=== PATIENT | female | born 1995 | race Hispanic/Latino ===

== ENCOUNTER 2018-11-21 02:41 | Outpatient (CLI) | payer MEDICAID, OTHER ==
[2018-11-21] MEDS ORDERED: LACTATED RINGERS 1,000 ML ONE (03:10)
[2018-11-21] MEDS ORDERED: ZOFRAN ONE (03:30)
[2018-11-21] MEDS ORDERED: ZOFRAN IV ONE (03:42)
[2018-11-21] MEDS ORDERED: LACTATED RINGERS 1,000 ML IV SCH (04:00)
[2018-11-21] MEDS ORDERED: VISTARIL PO ONE ×2 (04:21→04:30)
== END 2018-11-21 05:06 | disposition home or self-care (01) ==
LOC: TRG 02:41
PROVIDERS: ATTEND Obstetrics & Gynecology
DX: O62.9 Abnormality of forces of labor, unspecified (principal); Z3A.37 37 weeks gestation of pregnancy
CPT/HCPCS: 59025; 96361; 96374; J2405; J7120; Q0177

== ENCOUNTER 2018-12-19 15:17 | Inpatient (IN) | payer MEDICAID ==
[2018-12-19] MEDS ORDERED: BRETHINE SUB-Q PRN (15:47)
[2018-12-19] MEDS ORDERED: SUBLIMAZE IV PRN (15:47)
[2018-12-19] MEDS ORDERED: BRETHINE IVP PRN (15:47)
[2018-12-19] MEDS ORDERED: MINERAL OIL PO PRN (15:47)
[2018-12-19] MEDS ORDERED: XYLOCAINE 2% INFILTRATI ONE (16:00)
[2018-12-19] MEDS ORDERED: PITOCin/NS 20 UNIT/1000ML DRIP 20 UNITS/1,000 ML BAG IV SCH (16:00)
[2018-12-19] MEDS ORDERED: PITOCin/NS 30 UNIT/500ML 30 UNITS/500 ML BAG IV SCH ×2 (16:00)
[2018-12-19] MEDS ORDERED: AMPICILLIN/NS 2 GM/100 ML 2 GM/100 ML BAG IV ONE (16:00)
[2018-12-19] MEDS: LACTATED RINGERS 1,000 ML IV SCH ×2 (16:11→18:35)
[2018-12-19 16:19] LABS: Hematocrit 32.7 % (30.3-42.9); Hemoglobin 10.5 gm/dl (10.1-14.3); Mean Corpuscular HGB Conc 32 % (30-34); Mean Corpuscular Volume 79 fl (79-97); Platelet Count 226 K/mm3 (140-440); Red Blood Count 4.11 M/mm3 (3.65-5.03); Red Cell Distribution Width 16.1 % (13.2-15.2)
[2018-12-19] MEDS ORDERED: NARCAN 2 MG/2 ML IV PRN (18:26)
--- NOTE | 2018-12-19 18:26 | Anesthesia Consultation ---
Anesthesia Consult and Med Hx Date of service: 12/19/18 - Airway Anesthetic Teeth Evaluation: Good ROM Head & Neck: Adequate Mental/Hyoid Distance: Adequate Mallampati Class: Class II Intubation Access Assessment: Probably Good - Pre-Operative Health Status ASA Pre-Surgery Classification: ASA2 Proposed Anesthetic Plan: Epidural, Spinal - Pulmonary Hx Asthma: No COPD: No Hx Pneumonia: No - Cardiovascular System Hx Hypertension: No - Central Nervous System Hx Seizures: No Hx Psychiatric Problems: No - Endocrine Hx Renal Disease: No Hx End Stage Renal Disease: No Hx Hypothyroidism: No Hx Hyperthyroidism: No - Hematic Hx Anemia: No Hx Sickle Cell Disease: No - Other Systems Hx Alcohol Use: No
--- NOTE | 2018-12-19 18:37 | Ultrasound Report ---
US OB FOLLOW UP CLINICAL INDICATION: Female, 23 years of age. Presentation and efw COMPARISON: None. TECHNIQUE: Several real-time grayscale and color Doppler images were obtained. Permanent images were secured for documentation. FINDINGS: Single live IUP demonstrated. heart rate 129 bpm. position cephalic. Mild oligo hydramnios. CLAIRE 6.6 cm. Cervix is closed and measures 4 cm in length. Estimated gestational age 38 weeks 4 days. Estimated delivery date December 29, 2018. Estimated weigh t 3677 g. Limited evaluation of structures due to late gestational age. Limited survey performed for pres entation and weight. IMPRESSION: 1. Single live IUP. Estimated gestational age 30 weeks 4 days. Estimated delivery date December 29, 2018. 2. presentation Vertex. Estimated weight 3677 g. 3. Mild oligohydramnios. This document is electronically signed by Sheila Brito DO., December 19 2018 06:34:59 PM ET
[2018-12-19] MEDS ORDERED: fentaNYL-BUPIV 2 MCG/ML-0.125% 200 MCG/100 ML BAG EPIDURAL SCH (19:00)
[2018-12-19] MEDS ORDERED: XYLOCAINE MPF 2% ONE (20:50)
[2018-12-19] MEDS ORDERED: AMPICILLIN/NS 1 GM/50 ML 1 GM/50 ML BAG IV SCH (22:00)
[2018-12-19] MEDS ORDERED: ZOFRAN IM ONE (23:07)
--- NOTE | 2018-12-19 23:13 | History and Physical Report ---
History of Present Illness Date of examination: 12/19/18 Date of admission: 12/19/18 15:17 Chief complaint: contractions History of present illness: This is 23 yo at 41+2 weeks here for contractions admitted for labor at 4cm. She patient of Dr. Emilia Julien. Records unavailable. Patient reports GDM diet control during Past History Past Medical History: no pertinent history, diabetes (gestational DM diet con trol) Past Surgical History: no surgical history Family/Genetic History: none Social history: no significant social history, single. denies: smoking, alcohol abuse, prescription drug abuse - Obstetrical History Expected Date of Delivery: 12/11/18 Actual Gestation: 41 Week(s) 1 Day(s) : 3 Para: 2 Hx # Term Pregnancies: 2 Number of Pregnancies: 0 Spontaneous Abortions: 0 Induced : 0 Number of Living Children: 2 Medications and Allergies Allergies Allergy/AdvReac Type Severity Reaction Status Date / Time No Known Allergies Allergy Verified 01/19/15 23:58 Home Medications Medication Instructions Recorded Confirmed Last Taken Type HYDROcodone/APAP 5-325 [[place] 2 each PO Q6H PRN #30 tablet 01/21/15 04/27/16 2 Months Ago Rx 5-325 mg TAB] ~02/25/16 Ibuprofen [Motrin 600 MG tab] 600 mg PO Q6HR #40 tablet 01/21/15 04/27/16 2 Months Ago Rx ~02/25/16 1 tab Pnv,Calcium 72/Iron/Folic Acid 1 tab PO DAILY #30 tablet 01/21/15 04/27/16 04/21/16 10:00 Rx [Pnv Plus Multivit Tab] Active Meds: Active Medications Ephedrine Sulfate (Ephedrine Sulfate) 10 mg IV Q2M PRN PRN Reason: Hypotension Fentanyl (Sublimaze) 100 mcg IV Q2H PRN PRN Reason: Labor Pain Last Admin: 12/19/18 16:25 Dose: 100 mcg Documented by: Lactated Ringer's (Lactated Ringers) 1,000 mls @ 125 mls/hr IV DIRECT NEVILLE Last Admin: 12/19/18 18:35 Dose: 125 mls/hr Documented by: Oxytocin/Sodium Chloride (Pitocin/Ns 20 Unit/1000ml Drip) 20 units in 1,000 mls @ 125 mls/hr IV DIRECT NEVILLE Last Admin: 12/19/18 23:03 Dose: 125 mls/hr Documented by: Oxytocin/Sodium Chloride (Pitocin/Ns 30 Unit/500ml) 30 units in 500 mls @ 1 mls /hr IV TITR NEVILLE; Protocol Last Admin: 12/19/18 21:55 Dose: 1 milliunits/min, 1 mls/hr Documented by: Oxytocin/Sodium Chloride (Pitocin/Ns 30 Unit/500ml) 30 units in 500 mls @ 2 mls/hr IV TITR NEVILLE; Protocol Fentanyl/Bupivacaine/Sodium Chlor (Fentanyl-Bupiv 2 Mcg/Ml-0.125%) 200 mcg in 100 mls @ 12 mls/hr EPIDURAL TITR NEVILLE; Protocol Last Admin: 12/19/18 21:39 Dose: 12 mls/hr Documented by: Ampicillin Sodium (Ampicillin/Ns 1 Gm/50 Ml) 1 gm in 50 mls @ 100 mls/hr IV Q4HR NEVILLE; Protocol Last Admin: 12/19/18 21:37 Dose: 100 mls/hr Documented by: Mineral Oil (Mineral Oil) 30 ml PO QHS PRN PRN Reason: Constipation Naloxone HCl (Narcan 2 Mg/2 Ml) 0.2 mg IV Q5M PRN PRN Reason: Respiratory sedation Ondansetron HCl (Zofran) 4 mg IM ONCE ONE Stop: 12/19/18 23:08 Terbutaline Sulfate (Brethine) 0.25 mg SUB-Q ONCE PRN PRN Reason: Hyperstimulation/Hypertonicity Terbutaline Sulfate (Brethine) 0.25 mg IVP ONCE PRN PRN Reason: Hyperstimulation/Hypertonicity Review of Systems All systems: negative Genitourinary: contractions - Vital Signs Vital signs: Vital Signs Pulse BP 109 H 114/73 12/19/18 15:27 12/19/18 15:27 Temp Pulse Resp BP Pulse Ox 97.2 F L 84 18 124/64 99 12/19/18 21:41 12/19/18 23:07 12/19/18 21:41 12/19/18 22:55 12/19/18 23:07 - Physical Exam Breasts: Positive: normal Cardiovascular: Regular rate, Normal S1 Lungs: Positive: Clear to auscultation, Normal air movement Abdomen: Positive: normal appearance, soft, normal bowel sounds. Negative: distention, tenderness, guarding Genitourinary (Female): Positive: normal external genitalia, normal perenium Vagina: Positive: normal moisture Uterus: Positive: normal size, normal contour Anus/Rectum: Positive: normal perianal skin Extremities: Positive: normal - Obstetrical FHR: category 1 Cervical Dilatation: 4 Cervical Effacement Percentage: 70 station: -3 Uterine Contraction Pattern: Regular Uterine Tone Measurement Phase: Contraction Uterine Contraction Intensity: Moderate Results Result Diagrams: 12/19/18 15:25 Abnormal lab results 12/19/18 Range/Units 15:25 MCH 26 L (28-32) pg RDW 16.1 H (13.2-15.2) % All other labs normal. Ultrasound: report reviewed Assessment and Plan A/P IUP 41+2 weeks GBS unknown amp intiated ivf, labs, FS offer epidural expect vaginal delivery US for presentation and EFW ( patient reports she feels like baby turned from vertex to cephalic)
--- NOTE | 2018-12-19 23:20 | Procedure Note ---
OB Delivery Note - Delivery Date of Delivery: 12/19/18 Surgeon: NANCY CHAMORRO Estimated blood loss: 200cc - Vaginal Delivery presentation: vertex Delivery position: OA Delivery induction: none Delivery augmentation: pitocin Delivery monitor: external FHT, external uterine Route of delivery: Delivery placenta: spontaneous Delivery cord: nuchal cord, 3 umbilical vessels Episiotomy: none Delivery laceration: none Anesthesia: epidural Delivery comments: Patient was noted to be c/c +1 and commenced to delivering a viable male infant at 2235. Upon delivery of head easily a nuchal easily reduced with easy delivery of shoulders. The baby placed on mom and suction nasopharyn and oropharyn and noted to have Apgars of 8 and 9. the cord was clamped and cut. The placenta delivered at 2240 intact with 3 vessle cord. EBL 200 cc. Weight of the baby 7 pounds 13oz. No lacerations noted. Patient tolerated procedure well and bonding with baby - Infant A at 1 minute: 8 at 5 minutes: 9 Infant Gender: Male (7 pounds and 13oz)
[2018-12-20] MEDS: IBUPROFEN PO SCH ×3 (01:30→20:19)
[2018-12-20] MEDS ORDERED: TUCKS PAD TP PRN (01:49)
[2018-12-20] MEDS ORDERED: DERMOPLAST TP PRN (01:50)
[2018-12-20] MEDS: PERCOCET 5/325 PO PRN ×4 (02:06→21:47)
[2018-12-20 10:59] LABS: Hematocrit 27.9 % (30.3-42.9)
[2018-12-20 11:18] LABS: Hemoglobin 9.1 gm/dl (10.1-14.3)
[2018-12-21] MEDS: PERCOCET 5/325 PO PRN ×3 (03:11→13:45)
[2018-12-21] MEDS: IBUPROFEN PO SCH ×3 (03:12→13:45)
[2018-12-21 17:01] VITALS: BP 117/75
--- NOTE | 2018-12-21 18:50 | Discharge Summary ---
Providers - Providers Date of Admission: 12/19/18 15:17 Date of discharge: 12/21/18 Attending physician: JUAN GUTIERREZ Primary care physician: JUAN GUTIERREZ Hospitalization Reason for admission: active labor Delivery: Episiotomy: none Laceration: none complications: none Discharge diagnosis: IUP at term delivered baby: male Condition at discharge: Good Disposition: DC-01 TO HOME OR SELFCARE Plan - Provider Discharge Summary Activity: routine, no heavy lifting 4 weeks, no strenuous exercise Diet: routine Instructions: routine Additional instructions: [] Smoking cessation referral if applicable(refer to patient education folder for contact #) [] Refer to [facility]'s [facility] Booklet Call your doctor immediately for: * Fever > 100.5 * Heavy vaginal bleeding ( >1 pad per hour) * Severe persistent headache * Shortness of breath * Reddened, hot, painful area to leg or breast * Drainage or odor from incision. * Keep incision clean and dry at all times and follow doctor's instructions regarding bathing/showering - Follow up plan Follow up: JUAN GUTIERREZ MD [Primary Care Provider] - 6 Weeks
== END 2018-12-21 21:36 | disposition home or self-care (01) | DRG 775 ==
LOC: LD 15:17 → OB 12-20 01:13
PROVIDERS: ADMIT Obstetrics & Gynecology; ATTEND Obstetrics & Gynecology
PROC: 10E0XZZ Delivery of Products of Conception, External Approach (ICD-10-PCS; principal; 2018-12-19)
PROC: 3E0R3BZ Introduction of Anesthetic Agent into Spinal Canal, Percutaneous Approach (ICD-10-PCS; 2018-12-19)
PROC: 00HU33Z Insertion of Infusion Device into Spinal Canal, Percutaneous Approach (ICD-10-PCS; 2018-12-19)
PROC: 3E0334Z Introduction of Serum, Toxoid and Vaccine into Peripheral Vein, Percutaneous Approach (ICD-10-PCS; 2018-12-21)
DX: O24.420 Gestational diabetes mellitus in childbirth, diet controlled (principal); O69.81X0 Labor and delivery complicated by cord around neck, without compression, not applicable or unspecified; O26.893 Other specified pregnancy related conditions, third trimester; Z3A.41 41 weeks gestation of pregnancy; Z37.0 Single live birth; Z67.11 Type A blood, Rh negative
CPT/HCPCS: 36415; 76816; 82962; 85014; 85018; 85027; 85461; 86592; 86850; 86900; 86901; G0378; J0290; J2405; J2590; J2790; J3010; J7120

== ENCOUNTER 2022-03-07 18:55 | Inpatient (IN) | payer MEDICAID ==
[2022-03-07] MEDS ORDERED: OXYTOCIN DRIP 30,000 MILLIUNITS/500 ML BAG IV ONE ×2 (19:25→20:01)
[2022-03-07] MEDS ORDERED: fentaNYL 100 MCG/2 ML INJ IV PRN (20:03)
[2022-03-07] MEDS ORDERED: MINERAL OIL 30 ML ORAL LIQD PO PRN (20:03)
[2022-03-07] MEDS ORDERED: LOPERAMIDE 2 MG CAP PO PRN (20:03)
[2022-03-07] MEDS ORDERED: ACETAMINOPHEN 325 MG TAB PO PRN (20:03)
[2022-03-07] MEDS ORDERED: LIDOCAINE (2%) 20 MG/1 ML VIAL 20 ML MDV INFILTRATI ONE (20:03)
[2022-03-07] MEDS ORDERED: TERBUTALINE 1 MG/1 ML INJ SUB-Q PRN (20:03)
[2022-03-07] MEDS ORDERED: METHYLERGONOVINE MALEATE 0.2 MG/ML VIAL IM PRN (20:03)
[2022-03-07] MEDS ORDERED: ePHEDrine SULFATE 50 MG/1 ML INJ IV PRN (20:03)
[2022-03-07] MEDS ORDERED: NalbUPHINE 10 MG/1 ML INJ IV PRN (20:03)
[2022-03-07] MEDS ORDERED: OXYTOCIN 10 UNIT/1 ML INJ IM PRN (20:03)
[2022-03-07] MEDS ORDERED: CARBOPROST TROMETHAMINE 250 MCG/1 ML INJ IM PRN (20:03)
[2022-03-07] MEDS ORDERED: miSOPROStol 200 MCG TAB PR PRN (20:03)
[2022-03-07] MEDS ORDERED: LACTATED RINGERS 1,000 ML IV SCH (20:15)
--- NOTE | 2022-03-07 20:19 | History and Physical Report ---
History of Present Illness Date of examination: 03/07/22 Date of admission: 03/07/22 20:00 Chief complaint: Labor History of present illness: Patient presented 8-9cm dilated followed immediately by delivery. States BAKARI 03/16/22 by blood work performed by her PCP in 09/2021, She has not had any PNC, no US's. 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 denies: smoking, alcohol abuse - Obstetrical History : 6 Para: 4 Hx # Term Pregnancies: 4 Number of Pregnancies: 0 Spontaneous Abortions: 1 (ectopic) Induced : 0 Number of Living Children: 4 Medications and Allergies Allergies Allergy/AdvReac Type Severity Reaction Status Date / Time No Known Allergies Allergy Verified 01/19/15 23:58 Home Medications Medication Instructions Recorded Confirmed Last Taken Type HYDROcodone/APAP 5-325 [[place] 2 each PO Q6H PRN #30 tablet 01/21/15 04/27/16 2 Months Ago Rx 5-325 mg TAB] ~02/25/16 Ibuprofen [Motrin 600 MG tab] 600 mg PO Q6HR #40 tablet 01/21/15 04/27/16 2 Mon ths Ago Rx ~02/25/16 1 tab Pnv,Calcium 72/Iron/Folic Acid 1 tab PO DAILY #30 tablet 01/21/15 04/27/16 04/21/16 10:00 Rx [Pnv Plus Multivit Tab] Active Meds: Active Medications Acetaminophen (Acetaminophen 325 Mg Tab) 650 mg PO Q4H PRN PRN Reason: Pain, Mild (1-3) Carboprost Tromethamine (Carboprost Tromethamine 250 Mcg/1 Ml Inj) 250 mcg IM ONCE PRN PRN Reason: Uterine Bleeding Ephedrine Sulfate (Ephedrine Sulfate 50 Mg/1 Ml Inj) 10 mg IV Q2M PRN PRN Reason: Hypotension Fentanyl (Fentanyl 100 Mcg/2 Ml Inj) 100 mcg IV Q2H PRN PRN Reason: Pain,Severe (7-10) LABOR PAIN Oxytocin/Sodium Chloride (Pitocin/Ns 30 Unit/500ml) 30 units in 500 mls @ 2 mls/hr IV TITR NEVILLE; Protocol Lactated Ringer's (Lactated Ringers) 1,000 mls @ 125 mls/hr IV DIRECT NEVILLE Oxytocin/Sodium Chloride (Pitocin/Ns 30 Unit/500ml) 30 units in 500 mls @ 40 mls/hr IV TITR NEVILLE; Protocol Loperamide HCl (Loperamide 2 Mg Cap) 2 mg PO ONCE PRN PRN Reason: give with Hemabate Methylergonovine Maleate (Methylergonovine Maleate 0.2 Mg/Ml Vial) 0.2 mg IM ONCE PRN PRN Reason: Uterine Bleeding Mineral Oil (Mineral Oil 30 Ml Oral Liqd) 30 ml PO QHS PRN PRN Reason: Constipation Misoprostol (Misoprostol 200 Mcg Tab) 800 mcg DC ONCE PRN PRN Reason: Uterine Bleeding Nalbuphine HCl (Nalbuphine 10 Mg/1 Ml Inj) 10 mg IV Q2H PRN PRN Reason: Pain, Moderate (4-6) Oxytocin (Oxytocin 10 Unit/1 Ml Inj) 10 unit IM ONCE PRN PRN Reason: Uterine Bleeding Terbutaline Sulfate (Terbutaline 1 Mg/1 Ml Inj) 0.25 mg SUB-Q ONCE PRN PRN Reason: Hyperstimulation/Hypertonicity - Vital Signs Vital signs: Vital Signs Pulse BP 73 143/88 03/07/22 19:57 03/07/22 19:57 Temp Pulse Resp BP Pulse Ox 65 138/87 03/07/22 20:13 03/07/22 20:13 Results All other labs normal. Assessment and Plan - Patient Problems (1) No care in current Current Visit: Yes Status: Acute Plan to address problem: Delivered
--- NOTE | 2022-03-07 20:21 | Procedure Note ---
OB Delivery Note - Delivery Date of Delivery: 03/07/22 Surgeon: KARLA MOODY Estimated blood loss: 300cc - Vaginal Delivery presentation: vertex Delivery position: OA Intrapartum events: no care Delivery induction: none Delivery monitor: external FHT, external uterine Route of delivery: Delivery placenta: spontaneous (intact) Episiotomy: none Delivery laceration: none Anesthesia: none - A at 1 minute: 8 at 5 minutes: 8 (5lb) Gender: Female (5lb)
[2022-03-07 20:43] LABS: Hematocrit 31.7 % (30.3-42.9); Hemoglobin 10.7 gm/dl (10.1-14.3); Mean Corpuscular HGB Conc 34 % (30-34); Mean Corpuscular Volume 94 fl (79-97); Platelet Count 277 K/mm3 (140-440); Red Blood Count 3.37 M/mm3 (3.65-5.03)
[2022-03-07 20:54] LABS: Amphetamine Screen,Urine PRESUMPTIVE NEGATIVE; Benzodiazepines Screen,Urine PRESUMPTIVE NEGATIVE; Cannabinoid Screen,Urine PRESUMPTIVE POSITIVE; Cocaine Screen,Urine PRESUMPTIVE NEGATIVE; Methadone Screen,Urine PRESUMPTIVE NEGATIVE; Opiate Screen,Urine PRESUMPTIVE NEGATIVE
[2022-03-07] MEDS ORDERED: OXYTOCIN DRIP 30 UNITS/500 ML BAG IV SCH ×2 (21:00)
[2022-03-07 21:12] LABS: Hepatitis C Virus Antibody Non-Reactive (NonReactive)
[2022-03-07] MEDS ORDERED: MAGNESIUM HYDROXIDE (MOM) ORAL LIQD UDC PO PRN (21:24)
[2022-03-07] MEDS ORDERED: ONDANSETRON 4 MG/2 ML INJ IV PRN (21:24)
[2022-03-07] MEDS ORDERED: diphenhydrAMINE 25 MG CAP PO PRN (21:24)
[2022-03-07] MEDS ORDERED: LANOLIN/ZINC/DIMETHICONE (LANSINOH) 7 GM TP PRN (21:24)
[2022-03-07] MEDS ORDERED: WITCH HAZEL/ GLYCERIN PAD TP PRN (21:24)
[2022-03-07] MEDS: IBUPROFEN 800 MG TAB PO PRN (23:11)
[2022-03-08] MEDS: ACETAMINOPHEN 500 MG TAB PO PRN ×3 (03:59→21:47)
[2022-03-08 08:20] LABS: Hematocrit 27.3 % (30.3-42.9); Hemoglobin 8.9 gm/dl (10.1-14.3)
[2022-03-08] MEDS: IBUPROFEN 800 MG TAB PO PRN ×2 (09:00→18:06)
--- NOTE | 2022-03-08 09:23 | Progress Note ---
Assessment and Plan - Patient Problems (1) (spontaneous vaginal delivery) Current Visit: Yes Status: Acute Plan to address problem: Routine care Anticipate D/C in AM (2) No care in current Current Visit: Yes Status: Acute Plan to address problem: Case management consulted (3) Acute blood loss anemia Current Visit: Yes Status: Acute Plan to address problem: H/H as above Will begin ferrous sulfate twice daily to continue on discharge Subjective - Subjective Date of service: 03/08/22 Principal diagnosis: s/p Interval history: Patient ddoign well without complaint. Notes cramping abdominal pain. Notes appropriate vaginal bleeding. Denies fevers, chills, chest pain, SOB, and dizziness. Patient reports: appetite normal, voiding normally, pain well controlled, ambulating normally : in NICU Objective - Vital Signs Latest vital signs: Vital Signs Temp Pulse Resp BP BP Pulse Ox Pulse Ox 03/08/22 08:46 97.9 F 75 20 144/89 99 03/08/22 06:35 98.6 F 80 18 137/86 99 03/08/22 02:20 98.1 F 79 16 132/81 97 03/07/22 21:01 97.9 F 71 18 135/94 100 100 03/07/22 20:28 77 132/88 03/07/22 20:13 65 138/87 03/07/22 19:57 73 143/88 03/07/22 19:45 98.4 F Intake and Output 03/07/22 03/08/22 03/08/22 23:59 07:59 15:59 Intake Total 480 320 Output Total 500 600 Balance -500 -120 320 Intake: Oral 320 Intake, Free Water 480 Output: Urine 500 600 Void 500 600 Other: Total, Intake Amount 320 Total, Output Amount 100 600 # Voids Void 2 1 1 Weight 76.204 kg Estimated Blood Loss 200 - Exam Abdomen: Present: normal appearance, soft Uterus: Present: firm, fundal height below umbilicus Extremities: Present: normal - Labs Labs: Abnormal lab results 03/07/22 03/08/22 Range/Units 19:10 07:56 RBC 3.37 L (3.65-5.03) M/mm3 Hgb 8.9 L (10.1-14.3) gm/dl Hct 27.3 L (30.3-42.9) % RDW 16.0 H (13.2-15.2) %
[2022-03-08] MEDS: FERROUS SULFATE 325 MG TAB PO SCH ×2 (12:38→21:47)
[2022-03-09] MEDS: IBUPROFEN 800 MG TAB PO PRN ×2 (03:57→12:52)
[2022-03-09] MEDS ORDERED: MEASLES, MUMPS & RUBELLA 12,500 UNIT/0.5 ML VACCINE SUB-Q ONE ×2 (09:00→14:04)
[2022-03-09 12:04] LABS: Hematocrit 30.8 % (30.3-42.9); Hemoglobin 10.2 gm/dl (10.1-14.3); Mean Corpuscular HGB Conc 33 % (30-34); Mean Corpuscular Volume 95 fl (79-97); Platelet Count 290 K/mm3 (140-440); Red Blood Count 3.24 M/mm3 (3.65-5.03)
--- NOTE | 2022-03-09 12:26 | Discharge Summary ---
Providers - Providers Date of Admission: 03/07/22 20:00 Attending physician: KARLA MOODY 03/07/22 21:24 Consult to Case Management [CONS] Routine Services Needed at Discharge: Home Health Services Notified:: computer input Phone number called:: [phone] Comment:: No care, positive THC Primary care physician: KARLA MOODY Hospitalization Delivery: Laceration: none Other procedures: none Discharge diagnosis: IUP at term delivered [place] baby: female Hospital course: Patient presented in active labor at with no PNC. S/p . Routine care. Mild range blood pressures noted. Labs WNL so diagnosis of gHTN. Baby in NICU doing well. Requests to go home. Stable for discharge on PPD #2 Condition at discharge: Good Disposition: 01 HOME / SELF CARE / HOMELESS - Discharge Diagnoses (1) (spontaneous vaginal delivery) Status: Acute (2) No care in current Status: Acute (3) Acute blood loss anemia Status: Acute Plan - Provider Discharge Summary Activity: no sex for 6 weeks Diet: routine Instructions: routine Additional instructions: [] Smoking cessation referral if applicable(refer to patient education folder for contact #) [] Refer to [facility] Booklet Call your doctor immediately for: * Fever > 100.5 * Heavy vaginal bleeding ( >1 pad per hour) * Severe persistent headache * Shortness of breath * Reddened, hot, painful area to leg or breast * Drainage or odor from incision. * Keep incision clean and dry at all times and follow doctor's instructions regarding bathing/showering - Follow up plan Follow up: KARLA MOODY MD [Primary Care Provider] - 7 Days
[2022-03-09 12:27] LABS: Alanine Aminotransferase 7 units/L (7-56); Albumin 3.2 g/dL (3.9-5); Blood Urea Nitrogen 3 mg/dL (7-17); Calcium 8.6 mg/dL (8.4-10.2); Hemolysis Index 4
[2022-03-09 12:28] LABS: BUN/Creatinine Ratio 4
[2022-03-09] MEDS: FERROUS SULFATE 325 MG TAB PO SCH (12:51)
[2022-03-09 17:08] VITALS: BP 133/91
== END 2022-03-09 16:30 | disposition home or self-care (01) | DRG 775 ==
LOC: TRG 18:55 → APU 19:02 → TRG 19:58 → APU 20:00 → OB 20:55
PROVIDERS: ADMIT Obstetrics & Gynecology; ATTEND Obstetrics & Gynecology
PROC: 10E0XZZ Delivery of Products of Conception, External Approach (ICD-10-PCS; principal; 2022-03-07)
PROC: 3E0234Z Introduction of Serum, Toxoid and Vaccine into Muscle, Percutaneous Approach (ICD-10-PCS; 2022-03-09)
DX: O13.4 Gestational [pregnancy-induced] hypertension without significant proteinuria, complicating childbirth (principal); O26.893 Other specified pregnancy related conditions, third trimester; O62.3 Precipitate labor; Z37.0 Single live birth; Z3A.38 38 weeks gestation of pregnancy; Z20.822 Contact with and (suspected) exposure to COVID-19; Z67.11 Type A blood, Rh negative; Z23 Encounter for immunization; O90.81 Anemia of the puerperium; D62 Acute posthemorrhagic anemia
CPT/HCPCS: 36415; 59025; 80053; 80307; 83615; 85014; 85018; 85027; 85461; 86592; 86706; 86762; 86803; 86850; 86900; 86901; 87806; 90707; 96365; 96366; G0378; J2590; J2790; U0003